=== PATIENT | female | born 1985 | race Caucasian/White ===

== ENCOUNTER 2020-01-26 09:56 | Outpatient (REF) | payer MEDICAID, SELFPAY ==
[2020-01-26 21:05] LABS: HCT 40.1 % (36.0-46.0); HGB 13.1 g/dL (11.2-15.7); MCH 31.8 pg (27.0-33.0); MCHC 32.7 % (32.0-36.0); MCV 97.3 fL (80-95); MPV 10.3 fL (8.0-11.0); Platelet Count 273 10^3/uL (130-400); RBC 4.12 10^6/uL (3.93-5.22); RDW 13.3 % (11.7-14.6); RDW-SD 47.3 fL; WBC 7.31 10^3/uL (4.4-10.8)
[2020-01-26 21:37] LABS: ALT 25 U/L (14-59); AST 18 U/L (15-37); Albumin 3.6 g/dL (3.4-5.0); Alkaline Phosphatase 85 U/L (46-116); Anion Gap 11.9 mmol/L (3-11); BUN 12 mg/dL (7-18); Bilirubin, Total 0.2 mg/dL (0.2-1.0); CO2 23.1 mmol/L (21.0-32.0); CREATININE 1.12 mg/dL (0.55-1.02); Calcium 9.1 mg/dL (8.5-10.1); Chloride 104 mmol/L (98-107); Estimated GFR 56.03 (mL/min/1.73m2); Glucose 93 mg/dL (74-106); Potassium 4.3 mmol/L (3.5-5.1); Sodium 139 mmol/L (136-145); TSH (W/Ref FT4) 4.97 uIU/mL (0.36-3.74); Total Protein 6.9 g/dL (6.4-8.2)
[2020-01-26 22:03] LABS: FREE T4 0.95 ng/dL (0.76-1.46)
[2020-01-29 08:43] LABS: LH 10.4 mIU/mL (See Note)
[2020-01-29 08:48] LABS: FSH 7.5 mIU/mL (See Note)
== END 2020-01-26 10:16 ==
LOC: NCHCN 09:56
PROVIDERS: PCP Family Medicine; Visit Provider Family Medicine
DX: R63.5 Abnormal weight gain (principal); N95.1 Menopausal and female climacteric states; F10.10 Alcohol abuse, uncomplicated
CPT/HCPCS: 80053; 85027; 83001; 83002; 83036; 84439; 84443

== ENCOUNTER 2020-06-23 12:32 | Emergency (ER) | payer MEDICAID, SELFPAY ==
[2020-06-23 12:41] VITALS: BP 117/83; PULSE 82; RESP 18; TEMP 36.7; O2SAT 97
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
== END 2020-06-23 13:32 | disposition home or self-care (01) ==
LOC: ER 13:26
PROVIDERS: Emergency Provider Student in an Organized Health Care Education/Training Program; PCP Family Medicine
DX: H10.022 Other mucopurulent conjunctivitis, left eye (principal)
CPT/HCPCS: 99283

== ENCOUNTER 2020-10-20 00:25 | Emergency (ER) | payer MEDICAID, SELFPAY ==
--- NOTE | 2020-10-20 00:30 | DI.RAD_ITS ---
Exam(s) XR KNEE LT 3V AP,LAT,DAX EXAM: XR KNEE LT 3V AP,LAT,DAX CLINICAL HISTORY: trauma. TECHNIQUE: 2D digital imaging was performed. COMPARISON: No exams were available for comparison FINDINGS: No evidence of fracture although there does appear to be a small amount of increased joint fluid. Be nign bone islands noted in the lateral femoral condyle. No degenerative changes. No lytic osseous l esions. IMPRESSION: No fractures. Subtle joint effusion. Follow-up recommended. DATA REPOSITORY: RADIATION DOSE DELIVERED:
--- NOTE | 2020-10-20 00:30 | DI.RAD_ITS ---
Exam(s) XR HIP LT COMPLETE AP PELVIS EXAM: XR HIP LT COMPLETE AP PELVIS CLINICAL HISTORY: trauma. TECHNIQUE: 2D digital imaging was performed. COMPARISON: No exams were available for comparison FINDINGS: No evidence of acute pelvic nor hip fracture. Small ossified density off the superolateral aspect of the left hip acetabulum is noted. This does not have an acute appearance. Sacroiliac joints unrema rkable. IMPRESSION: No fractures evident. DATA REPOSITORY: RADIATION DOSE DELIVERED:
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
[2020-10-20 00:33] VITALS: BP 129/86; PULSE 103; RESP 18; TEMP 36.3; O2SAT 95
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
== END 2020-10-20 02:10 | disposition home or self-care (01) ==
PROVIDERS: Emergency Provider Emergency Medicine; PCP Family Medicine
DX: S89.82XA Other specified injuries of left lower leg, initial encounter (principal); X50.1XXA Overexertion from prolonged static or awkward postures, initial encounter
CPT/HCPCS: 29505; 73562; 99284; 73502; 99283

== ENCOUNTER 2020-10-31 19:07 | Outpatient (REF) | payer MEDICAID, SELFPAY ==
[2020-10-31 19:57] LABS: Anion Gap 13.6 mmol/L (3-11); BUN 14 mg/dL (7-18); CO2 21.4 mmol/L (21.0-32.0); CREATININE 1.3 mg/dL (0.55-1.02); Calcium 9.2 mg/dL (8.5-10.1); Chloride 106 mmol/L (98-107); Estimated GFR 46.89 (mL/min/1.73m2); FREE T4 0.89 ng/dL (0.76-1.46); Glucose 106 mg/dL (74-106); Sodium 141 mmol/L (136-145); TSH 2.13 uIU/mL (0.36-3.74)
[2020-10-31 20:22] LABS: HCT 42.1 % (36.0-46.0); HGB 14.1 g/dL (11.2-15.7); MCH 32.6 pg (27.0-33.0); MCHC 33.5 % (32.0-36.0); MCV 97.2 fL (80-95); MPV 10.2 fL (8.0-11.0); Platelet Count 275 10^3/uL (130-400); RBC 4.33 10^6/uL (3.93-5.22); RDW 12.5 % (11.7-14.6); RDW-SD 44.7 fL; WBC 6.49 10^3/uL (4.4-10.8)
== END 2020-10-31 19:08 | disposition home or self-care (01) ==
LOC: NCHCN 19:07
PROVIDERS: PCP Family Medicine; Visit Provider Family Medicine
DX: R94.6 Abnormal results of thyroid function studies (principal)
CPT/HCPCS: 80048; 85027; 84439; 84443

== ENCOUNTER 2021-04-24 19:10 | Outpatient (REF) | payer MEDICAID, SELFPAY ==
[2021-04-24 19:51] LABS: TSH (W/Ref FT4) 2.19 uIU/mL (0.36-3.74)
[2021-04-28 08:52] LABS: Cyclic Citrullinated Peptide <2.5 U/mL (<5.0)
[2021-04-28 10:27] LABS: Lyme Ab w Rflx to Lyme Confirm Negative (Negative)
[2021-04-28 15:05] LABS: IgA 162 mg/dL (85-499); Interpretation (See Note); Tissue Transglutaminase IgA <1.2 U/mL (<4.0)
[2021-04-28 17:51] LABS: Anaplasma phagocytophilum Negative (Negative); B. miyamotoi PCR Negative (Negative); Babesia divergens/MO-1 Negative (Negative); Babesia duncani Negative (Negative); Babesia microti Negative (Negative); Ehrlichia chaffeensis Negative (Negative); Ehrlichia ewingii/canis Negative (Negative); Ehrlichia muris eauclairensis Negative (Negative)
== END 2021-04-24 19:11 | disposition home or self-care (01) ==
LOC: NCHCN 19:10
PROVIDERS: PCP Family Medicine; Visit Provider Family Medicine
DX: R19.7 Diarrhea, unspecified (principal); R61 Generalized hyperhidrosis; M25.59 Pain in other specified joint
CPT/HCPCS: 82784; 83516; 86200; 87798; 84443; 86618

== ENCOUNTER 2021-05-07 20:44 | Emergency (ER) | payer MEDICAID, SELFPAY ==
--- NOTE | 2021-05-07 20:45 | RT.EKG_ITS ---
APPROVED REPORT Exam: Resting ECG Reason for Exam: sob Patient Location: E HR:62 bpm ECG Measurements Heart Rate 62 AXIS WV 136 P 12 QRSd 101 QRS 20 QT 415 T 0 QTc 423 Conclusion Sinus rhythm...normal P axis, V-rate 60- 99
[2021-05-07 20:48] VITALS: PULSE 75; RESP 18; TEMP 37; O2SAT 99
--- NOTE | 2021-05-07 21:00 | DI.RAD_ITS ---
Exam(s) XR PORTABLE CHEST AP EXAM: XR PORTABLE CHEST AP CLINICAL HISTORY: cough, congestion. TECHNIQUE: 2D digital imaging was performed. COMPARISON: CR CHEST 2 VIEWS PA,LAT from 05/26/2017 FINDINGS: Heart size is upper normal. The mediastinum is not widened. Lungs are clear. No infiltrates nor obvious pleural effusions. IMPRESSION: No acute pulmonary findings on this single AP portable view of the chest. DATA REPOSITORY: RADIATION DOSE DELIVERED: All CT scans at this facility use at least one of these dose optimization techniques: automated exposure control; mA and/or kV adjustment per patient size (includes targeted e xams where dose is matched to clinical indication); or iterative reconstruction.
[2021-05-07 21:01] VITALS: BP 131/94
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
--- NOTE | 2021-05-07 21:44 | DI.VRAD_ITS ---
PROCEDURE INFORMATION: Exam: XR Chest Exam date and time: 05/07/2021 9:06 PM Age: 36 years old Clinical indication: Other: SOB TECHNIQUE: Imaging protocol: XR of the chest. Views: 1 view. COMPARISON: CR CHEST 2 VIEWS PA,LAT 05/26/2017 12:31 AM FINDINGS: Lungs: Unremarkable. No consolidation. Pleural spaces: Unremarkable. No pleural effusion. No pneumothorax. Heart/Mediastinum: Unremarkable. No cardiomegaly. Bones/joints: Unremarkable. IMPRESSION: No acute findings. Dictated and Authenticated by: Osiel Cage MD. Ordering:VALERY Cr MD
[2021-05-07] MEDS: Amox. 875/Clav. 125, 2 TABS/BTL 1 TAB PO (22:34)
[2021-05-07] MEDS: predniSONE 20 MG TAB 40 MG PO (22:35)
[2021-05-09 11:51] LABS: COVID-19 RT-PCR UVMMC Result Negative (Negative)
--- NOTE | 2021-05-10 09:14 | NUR.NOTE ---
left a message for patient to call us back for covid results
--- NOTE | 2021-05-11 12:36 | NUR.NOTE ---
called patient with covid negative results. PAtient had been notified by Dr. Mendieta 2 days ago
== END 2021-05-07 22:34 | disposition home or self-care (01) ==
PROVIDERS: Emergency Provider Emergency Medicine; PCP Family Medicine
DX: J01.90 Acute sinusitis, unspecified (principal); Z20.822 Contact with and (suspected) exposure to COVID-19; R05.9 Cough, unspecified
CPT/HCPCS: 93005; 99284; U0003; 71045; 93010; 99283; J7512

== ENCOUNTER 2021-07-07 21:50 | Outpatient (REF) | payer MEDICAID, SELFPAY | END 2021-07-07 21:51 | disposition home or self-care (01) | LOC: LBN 21:50 | PROVIDERS: PCP Family Medicine; Visit Provider Family Medicine | DX: L02.213 Cutaneous abscess of chest wall (principal) | CPT/HCPCS: 87070; 87205 ==

== ENCOUNTER 2021-08-15 16:12 | Outpatient (REF) | payer MEDICAID, SELFPAY ==
--- NOTE | 2021-08-15 15:15 | PAPFT_PTH ---
PATIENT: Shi Ochoa V LOC: LOCATED WITHIN [facility]#:[id number] AGE/SX: 36/F ROOM: RE08/15/[address]: Aggie Mendieta : 1985 BED: DIS: 08/15/2021 SPEC #: [id number] RECD: 08/18/21 13:11 STATUS: PHILLIP RELori #: [id number] REEMA: 08/15/21 15:[address]: Aggie Mendieta DEPT: COUNTS INCLUDE 234 BEDS AT THE [facility] Cytology RECD BY: Evelyn Houston Tissues: 1 - CX/ENDOCX FOR PAP SMEARS Procedures: PAP THIN PREP/UVM Screening HPV DNA PROBE Comments: [id number]
== END 2021-08-15 16:13 | disposition home or self-care (01) ==
LOC: NCHCN 16:12
PROVIDERS: PCP Family Medicine; Visit Provider Family Medicine
DX: Z12.4 Encounter for screening for malignant neoplasm of cervix (principal); Z11.51 Encounter for screening for human papillomavirus (HPV)
CPT/HCPCS: 88142; 87624

== ENCOUNTER 2021-10-06 19:27 | Emergency (ER) | payer MEDICAID, SELFPAY ==
--- NOTE | 2021-10-06 19:30 | DI.RAD_ITS ---
Exam(s) XR PORTABLE CHEST AP EXAM: XR PORTABLE CHEST AP CLINICAL HISTORY: cough. TECHNIQUE: 2D digital imaging was performed. COMPARISON: CR,XR XR PORTABLE CHEST AP from 05/07/2021 FINDINGS: Single AP portable view. Heart size is upper normal. The mediastinum is not widened. Lungs are clear. No infiltrates nor obvious pleural effusions. IMPRESSION: No acute pulmonary findings on this single AP portable view of the chest. DATA REPOSITORY: RADIATION DOSE DELIVERED: All CT scans at this facility use at least one of these dose optimization techniques: automated exposure control; mA and/or kV adjustment per patient size (includes targeted e xams where dose is matched to clinical indication); or iterative reconstruction.
[2021-10-06 19:32] VITALS: BP 113/92; PULSE 63; RESP 18; TEMP 36.9; O2SAT 97
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
[2021-10-06 21:17] VITALS: BP 140/85; PULSE 65; RESP 14; TEMP 36.8; O2SAT 94
--- NOTE | 2021-10-06 21:28 | DI.VRAD_ITS ---
PROCEDURE INFORMATION: Exam: XR Chest Exam date and time: 10/06/2021 8:00 PM Age: 36 years old Clinical indication: Cough TECHNIQUE: Imaging protocol: XR of the chest. Views: 1 view. COMPARISON: XR PORTABLE CHEST AP 05/07/2021 9:16 PM FINDINGS: Lungs: Unremarkable. No consolidation. Pleural spaces: Unremarkable. No pleural effusion. No pneumothorax. Heart/Mediastinum: Unremarkable. No cardiomegaly. Bones/joints: Unremarkable. IMPRESSION: No acute findings. Dictated and Authenticated by: Jaxon Faustin MD. Ordering:JOSÉ MIGUEL Rangel MD
[2021-10-06] MEDS: Albuterol HFA 8 GM 60 PUFF INH IH (21:38)
[2021-10-06] MEDS: predniSONE 20 MG TAB 60 MG PO (21:41)
[2021-10-08 12:00] LABS: COVID-19 RT-PCR UVMMC Result Negative (Negative)
== END 2021-10-06 21:39 | disposition home or self-care (01) ==
PROVIDERS: Emergency Provider Physician Assistant; PCP Family Medicine
DX: R05.1 Acute cough (principal); F17.210 Nicotine dependence, cigarettes, uncomplicated; R09.81 Nasal congestion; Z20.822 Contact with and (suspected) exposure to COVID-19
CPT/HCPCS: 36415; 99283; U0003; 71045; J7512

== ENCOUNTER 2021-10-17 18:27 | Outpatient (REF) | payer MEDICAID, SELFPAY ==
[2021-10-19 13:10] LABS: COVID-19 RT-PCR UVMMC Result Negative (Negative)
== END 2021-10-17 18:28 | disposition home or self-care (01) ==
LOC: NCHCN 18:27
PROVIDERS: PCP Family Medicine; Visit Provider Family Medicine
DX: Z20.822 Contact with and (suspected) exposure to COVID-19 (principal); J06.9 Acute upper respiratory infection, unspecified
CPT/HCPCS: U0003

== ENCOUNTER 2021-12-17 16:25 | Outpatient (REF) | payer MEDICAID, SELFPAY ==
[2021-12-17 15:46] LABS: COMMENT (LAB VIEW ONLY) 146.19 mg/dL; Microalb ug/mg Crea 37.1 ug/mg Cr
[2021-12-17 16:01] LABS: Anion Gap 13.3 mmol/L (3-11); BUN 17 mg/dL (7-18); CO2 19.7 mmol/L (21.0-32.0); CREATININE 1.1 mg/dL (0.55-1.02); Calcium 9.2 mg/dL (8.5-10.1); Chloride 106 mmol/L (98-107); Estimated GFR 56.52 (mL/min/1.73m2); Glucose 113 mg/dL (74-106); Potassium 4.1 mmol/L (3.5-5.1); Sodium 139 mmol/L (136-145)
== END 2021-12-17 16:26 | disposition home or self-care (01) ==
LOC: NCHCN 16:25
PROVIDERS: PCP Family Medicine; Visit Provider Family Medicine
DX: I10 Essential (primary) hypertension (principal); N18.31 Chronic kidney disease, stage 3a
CPT/HCPCS: 80048; 82043; 82570

== ENCOUNTER 2022-01-14 01:58 | Outpatient (CLI) | payer MEDICAID, SELFPAY ==
--- NOTE | 2022-01-14 | DI.NM_ITS ---
Exam(s) NM I123 THYROID UP SC DAY 1 CLINICAL HISTORY: hx hypothyroidism, Z86.39, dysphagia, R13.10, fatigue, R53.82. COMPARISON: NM NM I123 THYROID UP SC DAY 2 from 01/15/2022 TECHNIQUE: Capsule Dose: 377 uCi I-123 Images: At 4 hours and 24 hours. FINDINGS: The thyroid uptake at 4 hours was 14 percent, within the normal range. The total radioiodine uptake was 24.2% at 24 hours, within the normal range.. Images demonstrate absence of the left lobe of the thyroid. No ectopic sites of thyroid tissue are i dentified in the field of view. No cold or hot nodules are demonstrated. IMPRESSION: 1. Absent left lobe of the thyroid. 2. Normal total radioiodine uptake of 24.2 %. SNM Guidelines: Normal uptake values 10-35%. Graves Uptake >50-80%. DATA REPOSITORY:
== END 2022-01-14 02:18 ==
LOC: DI 01:58
PROVIDERS: PCP Family Medicine; Visit Provider Family Medicine
DX: R13.10 Dysphagia, unspecified (principal)
CPT/HCPCS: A9516

== ENCOUNTER → 2022-01-15 00:50 | Outpatient (CLI) | payer MEDICAID, SELFPAY ==
--- NOTE | 2022-01-15 10:00 | DI.NM_ITS ---
Exam(s) NM I123 THYROID UP SC DAY 2 CLINICAL HISTORY: H/O HYPOTHYROIDISM,Z86.39,FATIGUE,R53.83. COMPARISON: CR,XR XR PORTABLE CHEST AP from 10/06/2021 NM NM I123 THYROID UP SC DAY 1 from 01/14/2022 TECHNIQUE: Capsule Dose: 377 uCi I-123 Images performed at 4 hours and 24 hours. FINDINGS: There are no prior thyroid imaging studies available at time of this interpretation. Scintiphotos reveal is somewhat prominent right thyroid lobe. Isthmus and left lobe are not seen. P ossibly surgically absent possibly suppressed. No obvious hot or cold nodule. 4 hour uptake is 14 percent, within normal limits (6-18 percent normal) 24 hour uptake is slightly elevated at 40.8 percent (10-35 percent normal) IMPRESSION: 1. Total radioiodine uptake of 40.8% at 24 hours which is slightly elevated. 2. Scintiphotos reveal a slightly prominent right lobe with homogeneous prominent uptake. No hot or cold nodules. 3. Correlation with past thyroid surgical history and blood work recommended. SNM Guidelines: Normal uptake values 10-35%. Graves Uptake >50-80%. DATA REPOSITORY:
== END ==
PROVIDERS: PCP Family Medicine; Visit Provider Family Medicine
DX: R53.83 Other fatigue (principal); Z86.39 Personal history of other endocrine, nutritional and metabolic disease
CPT/HCPCS: 78014; A9512

== ENCOUNTER → 2022-02-11 16:10 | Outpatient (CLI) | payer MEDICAID, SELFPAY ==
--- NOTE | 2022-02-11 | DI.RAD_ITS ---
Exam(s) XR CHEST 2V PA LATERAL EXAM: XR CHEST 2V PA LATERAL CLINICAL HISTORY: Recurrent aspiration pneumonia, J69.0 TECHNIQUE: 2D digital imaging was performed of the chest. Two images were obtained. PA and lateral views were obtained. COMPARISON: CR,XR XR PORTABLE CHEST AP from 10/06/2021 FINDINGS: MEDIASTINUM: Normal. HEART: Normal. PULMONARY VASCULATURE: Normal. LUNGS: Clear. PLEURAL SPACE: No pleural effusion or pneumothorax. BONE:Within normal limits for the patient's age. OTHER FINDINGS:Normal. IMPRESSION: No acute pulmonary findings. DATA REPOSITORY: RADIATION DOSE DELIVERED:
== END ==
PROVIDERS: PCP Family Medicine; Visit Provider Family Medicine
DX: J69.0 Pneumonitis due to inhalation of food and vomit (principal)
CPT/HCPCS: 71046

== ENCOUNTER 2022-02-13 16:09 | Outpatient (REF) | payer MEDICAID, SELFPAY ==
[2022-02-13 19:01] LABS: Creatinine,Urine 160.12 mg/dL; Sodium, Urine 90 mmol/L
[2022-02-13 19:03] LABS: CLEAVED CELLS 104 mmol/24h (40-220); Creatinine,24hr Ur 1.76 g/24hr (0.60-1.80); Total Volume 1150 ml
[2022-02-17 17:13] LABS: Urine Volume 1150 mL
[2022-02-18 15:58] LABS: Urine Volume 1150 mL
[2022-02-19 02:15] LABS: Cortisol, U 14 mcg/24 h (3.5-45); Urine Volume 1150 mL
[2022-02-19 18:00] LABS: Metanephrines, U 87 mcg/24 h; Normetanephrine, U 521 mcg/24 h; Total Metanephrines, U 608 mcg/24 h; Urine Volume 1150 mL
[2022-02-24 19:25] LABS: Creatinine, 24hr Urine 1.69 g/24 h (0.50-2.15); Histamine, 24hr Urine 0.318 mg/24 h
[2022-02-25 10:04] LABS: Prostaglandin D2, Random Ur 231 ng/L
== END 2022-02-13 16:10 | disposition home or self-care (01) ==
LOC: NCHCN 16:09
PROVIDERS: Internal Medicine Endocrinology, Diabetes & Metabolism; PCP Family Medicine; Visit Provider Family Medicine
DX: R63.5 Abnormal weight gain (principal); R53.82 Chronic fatigue, unspecified; R23.2 Flushing
CPT/HCPCS: 82530; 83789; 84150; 81050; 82384; 82570; 83088; 83497; 83835; 84300

== ENCOUNTER 2022-07-21 11:10 | Outpatient (CLI) | payer MEDICAID, SELFPAY ==
[2022-07-21 10:57] LABS: HCT 41.3 % (36.0-46.0); HGB 13.7 g/dL (11.2-15.7); MCH 31.4 pg (27.0-33.0); MCHC 33.2 % (32.0-36.0); MCV 95 fL (80-95); MPV 9.6 fL (8.0-11.0); Platelet Count 225 10^3/uL (130-400); RBC 4.36 10^6/uL (3.93-5.22); RDW 12.5 % (11.7-14.6); RDW-SD 43.2 fL; WBC 7.11 10^3/uL (4.4-10.8)
[2022-07-21 11:40] LABS: ALT 28 U/L (14-59); AST 17 U/L (15-37); Albumin 3.9 g/dL (3.4-5.0); Alkaline Phosphatase 85 U/L (46-116); Anion Gap 11.5 mmol/L (3-11); BUN 12 mg/dL (7-18); Bilirubin, Total 0.3 mg/dL (0.2-1.0); CO2 22.5 mmol/L (21.0-32.0); CREATININE 1.2 mg/dL (0.55-1.02); Calcium 9.6 mg/dL (8.5-10.1); Chloride 105 mmol/L (98-107); Estimated GFR 60.16 (mL/min/1.73m2); Glucose 124 mg/dL (74-106); Potassium 3.8 mmol/L (3.5-5.1); Sodium 139 mmol/L (136-145); Total Protein 7.2 g/dL (6.4-8.2)
== END 2022-07-21 11:11 | disposition home or self-care (01) ==
LOC: LBO 11:12
PROVIDERS: PCP Family Medicine; Visit Provider Family Medicine
DX: R23.2 Flushing (principal); N18.31 Chronic kidney disease, stage 3a; J69.0 Pneumonitis due to inhalation of food and vomit
CPT/HCPCS: 36415; 80053; 83520; 85027

== ENCOUNTER 2024-09-28 13:18 | Emergency (ER) | payer MEDICAID, SELFPAY ==
[2024-09-28 13:22] VITALS: BP 178/101; PULSE 63; RESP 20; O2SAT 99
[2024-09-28 13:25] VITALS: BP 178/101; PULSE 63; RESP 20; O2SAT 99
--- NOTE | 2024-09-28 13:30 | DI.CT_ITS ---
Exam(s) CT HEAD WO EXAM: CT HEAD WO CLINICAL HISTORY: Headache, vomiting. TECHNIQUE: Imaging Protocol: Axial computed tomography images with coronal and sagittal reformatted images were created and reviewed COMPARISON: No exams were available for comparison FINDINGS: There are no skull fractures. There is no fluid in the visualized paranasal sinuses. There is no evidence of intracranial hemorrhage, mass effect, or shift of midline structures. There are no extra-axial fluid collections. The ventricles are not enlarged or shifted and there is no blo od within the ventricular system nor within the basal cisterns. There appears to be cerebellar tonsillar ectopia. IMPRESSION: No evidence of intracranial hemorrhage, intra or extra-axial. However, there is cerebellar tonsillar ectopia noted consistent with probable Chiari 1 malformation. Follow-up MRI recommended. Report and recommendations called by myself to ER provider 09/28/2024 at 2:13 p.m. RADIATION DOSE DELIVERED: 926.47mGy.cm Total DLP DATA REPOSITORY: All CT scans at this facility are submitted to the National Radiology Data Registry (NRDR) Dose Index Registry (DIR) with the [employer] (ACR). RADIATION OPTIMIZATION: All CT scans at this facility use at least one of these dose optimization te chniques: automated exposure control; mA and/or kV adjustment per patient size (includes targeted exa ms where dose is matched to clinical indication); or iterative reconstruction.
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
[2024-09-28] MEDS: diphenhydrAMINE 50 MG/ML VIAL 25 MG IVP (13:55)
[2024-09-28] MEDS: Ketorolac 30 MG/ML VIAL IVP (13:55)
[2024-09-28] MEDS: Prochlorperazine 10 MG/2 ML VIAL 5 MG IVP (13:56)
[2024-09-28] MEDS: Normal Saline 1,000 ML 1000 ML IV (13:58)
[2024-09-28 14:07] LABS: Abs Immature Grans 0.03 10^3/uL (0.0-0.06); Absolute Basophil Count 0.04 10^3/uL (0.0-0.2); Absolute Eosinophil Count 0.07 10^3/uL (0.0-0.7); Absolute Lymphocyte Count 1.75 10^3/uL (1.2-3.4); Absolute Monocyte Count 0.58 10^3/uL (0.1-0.8); Basophils % 0.5 %; Eosinophils % 0.8 %; HGB 14.4 g/dL (11.2-15.7); Immature Grans % 0.4 %; Lymphocytes % 20.7 %; MCH 31.4 pg (27.0-33.0); MCHC 33.5 % (32.0-36.0); MCV 94 fL (80-95); MPV 10.1 fL (8.0-11.0); Monocytes % 6.8 %; Neutrophils % 70.8 %; Platelet Count 206 10^3/uL (130-400); RBC 4.58 10^6/uL (3.93-5.22); RDW 12.4 % (11.7-14.6); WBC 8.47 10^3/uL (4.4-10.8)
[2024-09-28 14:21] LABS: ALT 17 U/L (14-59); AST 13 U/L (15-37); Albumin 4.1 g/dL (3.4-5.0); Alkaline Phosphatase 69 U/L (46-116); Anion Gap 12.1 mmol/L (3-11); BUN 12 mg/dL (7-18); Bilirubin, Total 0.4 mg/dL (0.2-1.0); CO2 23.9 mmol/L (21.0-32.0); CREATININE 1.1 mg/dL (0.55-1.02); Calcium 9.5 mg/dL (8.5-10.1); Chloride 107 mmol/L (98-107); Estimated GFR 65.96 (mL/min/1.73m2); Glucose 101 mg/dL (74-106); Potassium 3.7 mmol/L (3.5-5.1); Sodium 143 mmol/L (136-145); Total Protein 7.3 g/dL (6.4-8.2)
[2024-09-28] MEDS: Prochlorperazine 10 MG TAB PO (14:55)
[2024-09-28 14:56] VITALS: BP 125/79; PULSE 50; RESP 18; TEMP 36.7; O2SAT 99
[2024-09-29 12:07] LABS: TSH (W/Ref FT4) 3.74 uIU/mL (0.36-3.74)
== END 2024-09-28 15:05 | disposition home or self-care (01) ==
PROVIDERS: Nurse Practitioner Family; Emergency Provider Registered Nurse Emergency; PCP Family Medicine
DX: R51.9 Headache, unspecified (principal); I10 Essential (primary) hypertension; F17.210 Nicotine dependence, cigarettes, uncomplicated
CPT/HCPCS: 36415; 80053; 96361; 96374; 96375; 99284; 70450; 84443; 85025; J0780; J1200; J1885

== ENCOUNTER 2024-09-29 16:11 | Emergency (ER) | payer MEDICAID, SELFPAY ==
[2024-09-29 16:16] VITALS: BP 162/78; PULSE 61; RESP 24; TEMP 36.8; O2SAT 99
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
[2024-09-29] MEDS: Normal Saline 1,000 ML 1000 ML IV (16:57)
[2024-09-29] MEDS: Metoclopramide 10 MG/2 ML VIAL IVP (16:59)
[2024-09-29] MEDS: Dexamethasone 10 MG/ML VIAL IVP (17:01)
[2024-09-29] MEDS: diphenhydrAMINE 50 MG/ML VIAL 25 MG IVP (17:01)
[2024-09-29 17:02] LABS: Abs Immature Grans 0.03 10^3/uL (0.0-0.06); Absolute Basophil Count 0.03 10^3/uL (0.0-0.2); Absolute Eosinophil Count 0.08 10^3/uL (0.0-0.7); Absolute Lymphocyte Count 1.91 10^3/uL (1.2-3.4); Absolute Neutrophil Count 4.32 10^3/uL (1.2-6.7); Basophils % 0.4 %; Eosinophils % 1.2 %; HCT 41.3 % (36.0-46.0); HGB 13.8 g/dL (11.2-15.7); Immature Grans % 0.4 %; Lymphocytes % 28.2 %; MCH 31.6 pg (27.0-33.0); MCHC 33.4 % (32.0-36.0); MCV 95 fL (80-95); MPV 9.9 fL (8.0-11.0); Monocytes % 5.9 %; Neutrophils % 63.9 %; Platelet Count 194 10^3/uL (130-400); RBC 4.37 10^6/uL (3.93-5.22); RDW 12.5 % (11.7-14.6); RDW-SD 43.8 fL; WBC 6.77 10^3/uL (4.4-10.8)
[2024-09-29] MEDS: Acetaminophen 80 MG CHEW 160 MG PO (17:02)
[2024-09-29] MEDS: Ketorolac 15 MG/ML VIAL IVP (17:02)
[2024-09-29] MEDS: SUMAtriptan 25 MG TAB PO (17:02)
[2024-09-29] MEDS: ACETAMINOPHEN 500 MG/50 ML BAG 200 MG IVPB (17:02)
[2024-09-29] MEDS: Normal Saline 50 ML (17:02)
[2024-09-29] MEDS: Butalbital/Acetaminophen/Caffeine 50/325/40 TAB PO (17:03)
[2024-09-29 17:04] LABS: ESR 3 mm/hr (0-20)
[2024-09-29 17:19] LABS: C-Reactive Protein < 0.50 mg/dL (<or=0.5)
[2024-09-29 17:27] LABS: ALT 14 U/L (14-59); AST 14 U/L (15-37); Albumin 3.7 g/dL (3.4-5.0); Alkaline Phosphatase 65 U/L (46-116); Anion Gap 15.9 mmol/L (3-11); BUN 14 mg/dL (7-18); Bilirubin, Total 0.4 mg/dL (0.2-1.0); CO2 20.1 mmol/L (21.0-32.0); CREATININE 1.3 mg/dL (0.55-1.02); Calcium 9.2 mg/dL (8.5-10.1); Chloride 107 mmol/L (98-107); Estimated GFR 53.98 (mL/min/1.73m2); Glucose 151 mg/dL (74-106); Magnesium 1.6 mg/dL (1.8-2.4); Potassium 3.3 mmol/L (3.5-5.1); Sodium 143 mmol/L (136-145); TSH (W/Ref FT4) 3.09 uIU/mL (0.36-3.74)
[2024-09-29] MEDS: MAGNESIUM SULFATE 2 GM/50 ML BAG IV_INF (17:57)
[2024-09-29] MEDS: Potassium Chloride 20 MEQ TABCR 40 MEQ PO (17:59)
[2024-10-02 11:48] LABS: Lyme Ab w Rflx to Lyme Confirm Negative (Negative)
[2024-10-03 15:09] LABS: Anaplasma phagocytophilum Negative (Negative); B. miyamotoi PCR Negative (Negative); Babesia divergens/MO-1 Negative (Negative); Babesia duncani Negative (Negative); Babesia microti Negative (Negative); Ehrlichia chaffeensis Negative (Negative); Ehrlichia ewingii/canis Negative (Negative); Ehrlichia muris eauclairensis Negative (Negative)
== END 2024-09-29 18:42 | disposition home or self-care (01) ==
PROVIDERS: Emergency Provider Physician Assistant; PCP Family Medicine
DX: G43.909 Migraine, unspecified, not intractable, without status migrainosus (principal); I10 Essential (primary) hypertension; F17.200 Nicotine dependence, unspecified, uncomplicated
CPT/HCPCS: 80053; 85652; 87798; 96361; 96374; 96375; 99284; 83735; 84443; 85025; 86140; 86618; J0131; J1100; J1200; J1885; J2765; J3475

== ENCOUNTER 2024-10-03 22:05 | Emergency (ER) | payer MEDICAID, SELFPAY ==
[2024-10-03 22:09] VITALS: BP 137/95; PULSE 56; RESP 22; O2SAT 98
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
[2024-10-03 22:19] VITALS: BP 137/95; PULSE 56; RESP 22; O2SAT 98
[2024-10-03] MEDS: Magnesium Oxide 400 MG TAB PO (22:21)
[2024-10-03] MEDS: Droperidol 5 MG/2 ML VIAL IM (22:22)
[2024-10-03] MEDS: Promethazine 25 MG TAB PO (23:07)
== END 2024-10-03 23:26 | disposition home or self-care (01) ==
PROVIDERS: Emergency Provider Emergency Medicine; PCP Family Medicine
DX: R51.9 Headache, unspecified (principal); I10 Essential (primary) hypertension; F17.200 Nicotine dependence, unspecified, uncomplicated
CPT/HCPCS: 96372; 99284; 99283; J1790

== ENCOUNTER 2024-11-03 16:06 | Outpatient (REF) | payer MEDICAID, SELFPAY ==
--- NOTE | 2024-11-03 10:50 | PAPFT_PTH ---
PATIENT: Shi Ochoa V LOC: [facility]#:[id number] AGE/SX: 39/F ROOM: RE11/03/[address]: Humera Doll : 1985 BED: DIS: 11/03/2024 SPEC #: [id number] RECD: 11/03/24 17:31 STATUS: PHILLIP RELori #: [id number] REEMA: 11/03/24 10:[address]: Humera Doll DEPT: PENDING SALE TO [facility] Cytology RECD BY: Evelyn Houston Tissues: 1 - CX/ENDOCX FOR PAP SMEARS Procedures: PAP THIN PREP/UVM Screening HPV DNA PROBE Comments: [id number] (HPV 16 & 18/45) (CHLAMYDIA/GC)
[2024-11-06 12:02] LABS: Chlamydia Result Negative (Negative); GC Result Negative (Negative)
== END 2024-11-03 16:07 | disposition home or self-care (01) ==
LOC: NCHCN 16:06
PROVIDERS: PCP Nurse Practitioner Family; Visit Provider Nurse Practitioner Family
DX: Z11.3 Encounter for screening for infections with a predominantly sexual mode of transmission (principal); Z12.4 Encounter for screening for malignant neoplasm of cervix; Z11.51 Encounter for screening for human papillomavirus (HPV)
CPT/HCPCS: 87491; 87591; 88142; 87624

== ENCOUNTER 2024-12-12 15:44 | Outpatient (REF) | payer MEDICAID, SELFPAY ==
[2024-12-12 16:47] LABS: Hemoglobin A1C 5.0 % (<5.7)
[2024-12-12 16:59] LABS: ALT 29 U/L (14-59); AST 15 U/L (15-37); Albumin 3.8 g/dL (3.4-5.0); Alkaline Phosphatase 70 U/L (46-116); Anion Gap 10.4 mmol/L (3-11); BUN 7 mg/dL (7-18); Bilirubin, Total 0.4 mg/dL (0.2-1.0); CO2 25.6 mmol/L (21.0-32.0); Calcium 9.5 mg/dL (8.5-10.1); Calculated LDL 154 mg/dL (<100); Chloride 102 mmol/L (98-107); Cholesterol 225 mg/dL (<200); Estimated GFR 83.92 (mL/min/1.73m2); Glucose 87 mg/dL (74-106); HDL Cholesterol 47 mg/dL (>or=50); Potassium 3.9 mmol/L (3.5-5.1); Sodium 138 mmol/L (136-145); Total Protein 6.9 g/dL (6.4-8.2); Triglyceride 121 mg/dL (<150); Vitamin B12 296 pg/mL (193-986)
== END 2024-12-12 15:45 | disposition home or self-care (01) ==
LOC: NCHCN 15:44
PROVIDERS: PCP Nurse Practitioner Family; Visit Provider Nurse Practitioner Family
DX: E66.9 Obesity, unspecified (principal); I10 Essential (primary) hypertension; K21.9 Gastro-esophageal reflux disease without esophagitis
CPT/HCPCS: 80053; 80061; 82607; 83036

== ENCOUNTER 2025-01-09 02:32 | Outpatient (CLI) | payer MEDICAID, SELFPAY ==
--- NOTE | 2025-01-09 | DI.MRI_ITS ---
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 COMPARISON: CT CT HEAD WO from 09/28/2024 FINDINGS: VENTRICLES AND EXTRA AXIAL SPACES: Normal in size and morphology for the patient's age. MIDLINE SHIFT: None. CEREBRAL PARENCHYMA: No focus of restricted diffusion to suggest acute infarct. No space-occupying lesion identified. HEMORRHAGE: None. BRAINSTEM/CEREBELLUM: The cerebellar tonsils lay 6 mm below the foramen magnum consistent with a Chiari 1 malformation. The visualized cervical spinal cord shows no evidence of a syrinx. CALVARIUM: Normal. VISUALIZED PARANASAL SINUSES/MASTOIDS:There is a small mucous retention cyst in the right maxillary sinus. The remaining visualized paranasal sinuses and mastoid air cells are clear. [place] OF [place]: Normal flow void. PITUITARY GLAND: Unremarkable. OTHER FINDINGS: None. IMPRESSION: 1. Findings consistent with a Chiari 1 malformation. No evidence of a syrinx. 2. Otherwise unremarkable examination. DATA REPOSITORY:
== END 2025-01-09 02:52 ==
PROVIDERS: PCP Family Medicine; Visit Provider Nurse Practitioner Family
DX: Q04.8 Other specified congenital malformations of brain (principal)
CPT/HCPCS: 70551

== ENCOUNTER → 2025-05-29 15:00 | Outpatient (CLI) | payer MEDICAID, SELFPAY ==
--- NOTE | 2025-05-29 | DI.RAD_ITS ---
Exam(s) XR CHEST 2V PA LATERAL EXAM: XR CHEST 2V PA LATERAL CLINICAL HISTORY: SOB R06.02 TECHNIQUE: 2D digital imaging was performed of the chest. Two images were obtained. PA and lateral views were obtained. COMPARISON: CR,XR XR PORTABLE CHEST AP from 05/07/2021 CR XR CHEST 2V PA LATERAL from 02/11/2022 FINDINGS: MEDIASTINUM: Normal. HEART: Normal. PULMONARY VASCULATURE: Normal. LUNGS: Clear. PLEURAL SPACE: No pleural effusion or pneumothorax. BONE:Within normal limits for the patient's age. OTHER FINDINGS:Normal. IMPRESSION: No acute pulmonary findings. DATA REPOSITORY: RADIATION DOSE DELIVERED:
== END ==
LOC: DI 15:02
PROVIDERS: PCP Family Medicine; Visit Provider Nurse Practitioner Family
DX: R06.02 Shortness of breath (principal)
CPT/HCPCS: 71046